=== PATIENT | male | born 1990 | race Caucasian/White ===

== ENCOUNTER 2020-04-06 19:48 | Emergency (ER) | payer MEDICAID ==
[~2020-04-06] VITALS: Ht 162.6 cm; Wt 67.1 kg
[2020-04-06 20:12] VITALS: BP 161/101
--- NOTE | 2020-04-06 20:26 | NUR ---
ROMY MARTINEZ AT PT BEDSIDE
--- NOTE | 2020-04-06 21:03 | NUR ---
PT CAME IN TODAY TO HAVE HIS DRESSING TO HIS PORTACATH TO R SHOULDER CHANGED. C/O OF RASH, BURNING AND IRRITATION FROM PAPER TAPE. SITE IS RED WHERE PAPER TAPE WAS ADHERED TO SKIN. SKIN IS INTACT, NO OPEN WOUNDS OR SORES. BED IN LOWEST POSITION AND SIDE RAIL UP X 1. NKA KIDNEY FAILURE
--- NOTE | 2020-04-06 21:03 | NUR ---
NEW DRESSING APPLIED TO AREA. PT TOLERATED WELL.
--- NOTE | 2020-04-06 21:04 | NUR ---
Patient discharged with v/s stable. Written and verbal after care instructions given and explained. Patient alert, oriented and verbalized understanding of instructions. Ambulatory with steady gait. All questions addressed prior to discharge. ID band removed. Patient advised to follow up with PMD. Rx of CLOTRIMAZOLE AND TRIAMCINOLIONE given. Patient educated on indication of medication including possible reaction and side effects. Opportunity to ask questions provided and answered.
[2020-04-06 21:05] VITALS: BP 162/97
== END 2020-04-06 21:04 | disposition home or self-care (01) ==
LOC: MED 19:48
DX: R21 Rash and other nonspecific skin eruption (principal); I12.9 Hypertensive chronic kidney disease with stage 1 through stage 4 chronic kidney disease, or unspecified chronic kidney disease; N18.9 Chronic kidney disease, unspecified; Z98.890 Other specified postprocedural states; Z99.2 Dependence on renal dialysis; Z48.01 Encounter for change or removal of surgical wound dressing
CPT/HCPCS: 99283